=== PATIENT | female | born 1950 | race Caucasian/White ===

== ENCOUNTER 2021-05-05 19:19 | Emergency (ER) | payer OTHER ==
[~2021-05-05] VITALS: Ht 154.9 cm; Wt 63.6 kg
[~2021-05-05 19:19] MED LIST: LIDOcaine 1% W/epiNEPHrine 1:100,000 20ml vial ONE
[2021-05-05 19:24] VITALS: BP 155/85
[2021-05-05] MEDS ORDERED: HYDROcodone/acetaminophen 5mg/325mg tablet PO STA (19:31)
[2021-05-05] MEDS ORDERED: ASPI-1265 PO (20:34)
[2021-05-05] MEDS ORDERED: amox tr/potassium clavulanate 875/125mg TAB PO ONE (21:25)
[2021-05-05] MEDS ORDERED: LIDOcaine/PRILOcaine 5gm cream TP ONE (21:25)
[2021-05-05] MEDS ORDERED: ondansetron 4mg rapidly disintigrating tab PO ONE (21:25)
--- NOTE | 2021-05-05 21:40 | NUR ---
ED provider at bedside to attempt to drain the abscess- topical numbing has been placed. Patient tolerating okay so far.
[2021-05-05] MEDS ORDERED: AMOX-422 PO (22:22)
[2021-05-05] MEDS ORDERED: ONDA4TAB6 PO (22:22)
[2021-05-05] MEDS ORDERED: HYDROcodone/acetaminophen 5mg/325mg tablet PO ONE (22:45)
[2021-05-05] MEDS ORDERED: LIDOcaine 0.5% W/epiNEPHrine 1:200,000 50ml vial IJ ONE (22:45)
[2021-05-05] MEDS ORDERED: LIDOcaine 1% W/epiNEPHrine 1:200,000 10ml vial IJ ONE (22:50)
[2021-05-05] MEDS ORDERED: LIDOcaine 1% W/epiNEPHrine 1:100,000 20ml vial SQ ONE (22:50)
[2021-05-05] MEDS ORDERED: DOXYCYCLINE 100MG CAPSULE PO STA (23:27)
[2021-05-05] MEDS ORDERED: DOXY-1 PO (23:28)
--- NOTE | 2021-05-05 23:30 | NUR ---
ED provider at bedside with I&D equipment at bedside, packing materials, more numbing medications. Several attempts have been made for numbing the eye but patient is not tolerating well. At this time patient and family member are stating they want to leave. ED provider explaining that the infection could spread, more should be drained from the abscess- patient and family insistant that they would prefer to go at this time.
== END 2021-05-05 23:41 | disposition left against medical advice (07) ==
LOC: ER 19:20
DX: H00.035 Abscess of left lower eyelid (principal); H57.11 Ocular pain, right eye; Z88.1 Allergy status to other antibiotic agents; Z79.2 Long term (current) use of antibiotics; Z79.899 Other long term (current) drug therapy
CPT/HCPCS: 64450; 99284

== ENCOUNTER 2023-06-19 13:50 | Inpatient (IN) | payer MEDICARE ==
[~2023-06-19] VITALS: Ht 162.6 cm; Wt 62.7 kg
[~2023-06-19 13:50] MED LIST changes: +ASPI-1265 PO; -LIDOcaine 1% W/epiNEPHrine 1:100,000 20ml vial ONE; +ONDA4TAB6 PO
[2023-06-19 14:28] LABS: BASOPHILS # (AUTO) 0.1 X10'3 (0-0.2); EOSINOPHILS # (AUTO) 0.1 X10'3 (0-0.9); HEMOGLOBIN 10.7 g/dl (12.0-16.0); LYMPHOCYTES # (AUTO) 2.1 X10'3 (1.1-4.8); MONOCYTES # (AUTO) 1.3 X10'3 (0-0.9)
[2023-06-19 14:30] LABS: BASOPHILS % (AUTO) 1.2 % (0-1); EOSINOPHILS % (AUTO) 1.3 % (0-6); HEMATOCRIT 33.7 % (35.0-45.0); LYMPHOCYTES % (AUTO) 30.2 % (21-51); MEAN CORPUSCULAR HEMOGLOBIN 28.4 PG (27.0-31.0); MEAN CORPUSCULAR HGB CONC 31.8 g/dL (33.0-36.5); MEAN PLATELET VOLUME 6.4 FL (7.4-10.4); MONOCYTES % (AUTO) 17.6 % (2-12); NEUTROPHILS # (AUTO) 3.5 X10'3 (1.8-7.7); NEUTROPHILS % (AUTO) 49.7 % (42-75); PLATELET COUNT 721 X10'3 (140-440); RED BLOOD COUNT 3.78 X10'6 (4.20-5.60); RED CELL DISTRIBUTION WIDTH 18.1 % (11.5-14.5); WHITE BLOOD COUNT 7.1 X10'3 (4.5-11.0)
[2023-06-19 14:46] LABS: ALANINE AMINOTRANSFERASE 24 U/L (12-78); ALBUMIN 3.1 G/DL (3.4-5.0); ALBUMIN/GLOBULIN RATIO 0.6 (1.1-1.5); ALKALINE PHOSPHATASE 97 IU/L (46-116); ANION GAP 13 (8-16); ASPARTATE AMINO TRANSFERASE 14 U/L (10-37); BILIRUBIN,TOTAL 0.1 MG/DL (0.1-1.0); BLOOD UREA NITROGEN 78 MG/DL (7-18); BUN/CREATININE RATIO 19.6 (10.0-20.0); CHLORIDE 103 MMOL/L (99-107); CREATININE 3.98 MG/DL (0.40-0.90); GLUCOSE 125 MG/DL (70-104); LIPASE 1477 U/L (73-393); POTASSIUM 4.9 MMOL/L (3.5-5.1); SODIUM 132 MMOL/L (135-145); TOTAL CARBON DIOXIDE 16.4 MMOL/L (24-32); TOTAL PROTEIN 8.5 G/DL (6.4-8.2); eCRCL 10 ML/MIN; eGFR 11 ML/MIN
[2023-06-19 15:03] LABS: CALCIUM 8.9 MG/DL (8.5-10.1)
[2023-06-19 15:55] LABS: ANISOCYTOSIS 2+; PLATELET ESTIMATE INCREASED; TOTAL CELLS COUNTED 100
[2023-06-19] MEDS ORDERED: ringers solution, lacted 1,000 ML IV ONE ×2 (16:10→16:15)
[2023-06-19 16:37] LABS: CLARITY,URINE TURBID (Clear); COLOR,URINE YELLOW (Yellow); UA COLLECTION TYPE CLN CATCH MIDSTREAM
[2023-06-19 16:38] LABS: BILIRUBIN,URINE NEGATIVE (Neg); GLUCOSE, URINE NEGATIVE (Neg); KETONES,URINE NEGATIVE (Neg); LEUKOCYTE ESTERASE ,URINE LARGE (Neg); NITRITES, URINE NEGATIVE (Neg); OCCULT BLOOD,URINE LARGE (Neg); PROTEIN,URINE >=1000 mg/dl (Neg); UROBILINOGEN,URINE 0.2 E.U/dL (0.2-1.0)
[2023-06-19 16:39] LABS: BACTERIA,URINE 3+ /HPF (Neg); RBC,URINE 20-50 /HPF (0-2); SQUAMOUS EPITHELIAL CELL,UR FEW /LPF (FEW); WBC,URINE TNTC /HPF (0-4)
[2023-06-19 16:40] LABS: MUCUS STRANDS MODERATE /LPF (Neg); WBC CLUMPS,URINE MANY /HPF (NEGATIVE)
[2023-06-19] MEDS ORDERED: CefTRIAXone 2gm/D5W 50ml BAG 50 ML IV ONE (17:10)
--- NOTE | 2023-06-19 17:24 | NUR ---
LR INFUSION STOPPED WHILE [facility] IS RUNNING. MEDS ARE NOT COMPATABLE.
--- NOTE | 2023-06-19 17:32 | NUR ---
RESIDENT AT BEDSIDE FOR ADMISSION
[2023-06-19] MEDS ORDERED: magnesium 2GM in 50ml NS 50 ML IV PRN (17:50)
[2023-06-19] MEDS ORDERED: LidoCAINE 2% Topical Jelly 11mL syringe TOP ONE (17:50)
[2023-06-19] MEDS ORDERED: magnesium hydroxide 30ml (MOM) UD suspension PO PRN (17:50)
[2023-06-19] MEDS ORDERED: potassium Cl 40MEQ/1/2NS 520ml 520 ML IV PRN (17:50)
[2023-06-19] MEDS ORDERED: magnesium Cl slow-release 64mg tablet PO PRN (17:50)
[2023-06-19] MEDS ORDERED: ondansetron/PF 4mg/2ml inj IV PRN (17:50)
[2023-06-19] MEDS ORDERED: mag hydrox/Alum hydrox/simeth 30ml oral suspension PO PRN (17:50)
[2023-06-19] MEDS ORDERED: magnesium 4gm in 100ml NS 100 ML IV PRN (17:50)
[2023-06-19] MEDS ORDERED: potassium Cl 20 mEq SR tablet PO PRN ×2 (17:50)
[2023-06-19] MEDS: normal saline 1000ml 1,000 ML IV SCH (17:50)
--- NOTE | 2023-06-19 18:40 | NUR ---
NS late LR still running. Pt refused FC.
[2023-06-19 19:13] LABS: CHOL/HDL RATIO 3.5 (0.00-4.99); CHOLESTEROL 151 MG/DL (0-200); HDL CHOLESTEROL 43 MG/DL (35-60); LDL CHOLESTEROL 82 MG/DL (50-100); MAGNESIUM 2.1 MG/DL (1.5-2.4); POTASSIUM 5.1 MMOL/L (3.5-5.1); THYROID STIMULATING HORMONE 2.04 ulU/ml (0.34-4.50); TRIGLYCERIDES 138 MG/DL (20-135)
[2023-06-19 19:44] LABS: OSMOLALITY 312 MOSM/K (280-300)
[2023-06-19] MEDS: heparin, porcine 5000 units/ml vial SQ SCH (20:00)
[2023-06-19] MEDS: docusate sod 100mg capsule PO SCH (20:00)
[2023-06-19] MEDS: K and/or MAG REPLACEMENT MC SCH (20:06)
[2023-06-19 21:35] VITALS: BP 166/70; PULSE 79; RESP 16; TEMP 97.6; O2SAT 100
--- NOTE | 2023-06-19 21:35 | NUR ---
PATIENT ADMITTED TO ROOM 4014A FROM ER FOR ACUTE CYSTITIS, PLACED COMFORTABLE IN BED. VITAL SIGNS TAKEN AND RECORDED.
--- NOTE | 2023-06-19 22:05 | NUR ---
PATIENT REFUSED TO HAVE TELE ON. CALLED DR. 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
--- NOTE | 2023-06-19 22:30 | NUR ---
PATIENT REFUSED NASAL SWAB AT THIS TIME.
[2023-06-20] MEDS: normal saline 1000ml 1,000 ML IV SCH ×3 (00:01→18:49)
--- NOTE | 2023-06-20 00:10 | NUR ---
PATIENT AGREED TO HAVE TELE MONITOR ON. PATIENT STILL STRONGLY REFUSED TO HAVE NASAL SWAB FOR MRSA.
[2023-06-20 03:56] VITALS: RESP 18; O2SAT 97
[2023-06-20 06:31] LABS: BASOPHILS # (AUTO) 0.1 X10'3 (0-0.2); EOSINOPHILS # (AUTO) 0.1 X10'3 (0-0.9); EOSINOPHILS % (AUTO) 1.4 % (0-6); WHITE BLOOD COUNT 7.6 X10'3 (4.5-11.0)
[2023-06-20 06:34] LABS: APTT 27 SECONDS (22-32); INR 0.9 INR; PROTHROMBIN TIME 10.2 SECONDS (9.0-12.0)
--- NOTE | 2023-06-20 06:34 | NUR ---
Problems reprioritized. Patient report given, questions answered & plan of care reviewed with AWAIS ACEVEDO.
[2023-06-20 06:35] LABS: BASOPHILS % (AUTO) 1.2 % (0-1); HEMATOCRIT 28.9 % (35.0-45.0); HEMOGLOBIN 9.6 g/dl (12.0-16.0); LYMPHOCYTES # (AUTO) 2.2 X10'3 (1.1-4.8); MEAN CORPUSCULAR HEMOGLOBIN 29.4 PG (27.0-31.0); MEAN CORPUSCULAR HGB CONC 33.3 g/dL (33.0-36.5); MEAN CORPUSCULAR VOLUME 88.2 FL (78-98); MEAN PLATELET VOLUME 6.5 FL (7.4-10.4); MONOCYTES # (AUTO) 1.2 X10'3 (0-0.9); MONOCYTES % (AUTO) 15.6 % (2-12); NEUTROPHILS % (AUTO) 52.8 % (42-75); PLATELET COUNT 610 X10'3 (140-440); RED BLOOD COUNT 3.28 X10'6 (4.20-5.60); RED CELL DISTRIBUTION WIDTH 17.6 % (11.5-14.5)
[2023-06-20 06:43] LABS: ALANINE AMINOTRANSFERASE 18 U/L (12-78); ALBUMIN 2.8 G/DL (3.4-5.0); ALBUMIN/GLOBULIN RATIO 0.6 (1.1-1.5); ALKALINE PHOSPHATASE 90 IU/L (46-116); ANION GAP 10 (8-16); ASPARTATE AMINO TRANSFERASE 10 U/L (10-37); BILIRUBIN,TOTAL 0.1 MG/DL (0.1-1.0); BLOOD UREA NITROGEN 72 MG/DL (7-18); BUN/CREATININE RATIO 20.3 (10.0-20.0); CALCIUM 8.9 MG/DL (8.5-10.1); CHLORIDE 107 MMOL/L (99-107); CREATININE 3.54 MG/DL (0.40-0.90); GLUCOSE 94 MG/DL (70-104); LIPASE 1360 U/L (73-393); PHOSPHORUS 4.9 MG/DL (2.3-4.5); POTASSIUM 4.8 MMOL/L (3.5-5.1); SODIUM 135 MMOL/L (135-145); TOTAL CARBON DIOXIDE 17.6 MMOL/L (24-32); TOTAL PROTEIN 7.5 G/DL (6.4-8.2); eCRCL 13 ML/MIN; eGFR 13 ML/MIN
[2023-06-20 07:00] VITALS: BP 160/58; PULSE 84; RESP 15; TEMP 97.7; O2SAT 100
[2023-06-20] MEDS: docusate sod 100mg capsule PO SCH ×2 (08:00→19:09)
[2023-06-20] MEDS: heparin, porcine 5000 units/ml vial SQ SCH ×2 (08:00→19:09)
[2023-06-20] MEDS: K and/or MAG REPLACEMENT MC SCH ×2 (08:00→20:00)
[2023-06-20] MEDS: aspirin 81mg tab.chew PO SCH (08:46)
[2023-06-20] MEDS: CefTRIAXone/D5W-Rocephin 1gm 50 ML IV SCH (08:46)
--- NOTE | 2023-06-20 10:16 | NUR ---
Patient refusing to have noonan catheter inserted. Resident Jameson aware and in to see patient. Patient continues to refuse.
--- NOTE | 2023-06-20 10:25 | NUR ---
patient seen ambulating to and from bathroom barefoot. educated to wear non skid socks or shoes for safety and fall prevention. patient continues to refuse. Addendum: 06/20/23 at 1026 by Tali Golden RN Amended: Links added.
[2023-06-20 12:26] LABS: SODIUM,URINE RANDOM 65 MEQ/L
[2023-06-20 12:29] LABS: OSMOLALITY UA 282 MOSM/K (50-1400)
[2023-06-20 12:33] LABS: URINE AMPHETAMINE SCREEN NEGATIVE (Neg); URINE BARBITUATE SCREEN NEGATIVE (Neg); URINE BENZODIAZEPINES SCREEN NEGATIVE (Neg); URINE CANNABINOID SCREEN NEGATIVE (Neg); URINE COCAINE SCREEN NEGATIVE (Neg); URINE METHADONE SCREEN NEGATIVE (Neg); URINE OPIATE SCREEN NEGATIVE (Neg); URINE PHENCYCLIDINE SCREEN NEGATIVE (Neg)
[2023-06-20 12:38] VITALS: BP 139/67; PULSE 63; RESP 18; TEMP 97.8; O2SAT 99
[2023-06-20 18:00] VITALS: BP 151/69; PULSE 69; RESP 18; TEMP 97.6; O2SAT 99
[2023-06-20 19:30] VITALS: RESP 18; O2SAT 99
[2023-06-20] MEDS: acetaminophen 325mg tablet PO PRN (20:30)
[2023-06-20 22:33] VITALS: BP 113/56; PULSE 76; RESP 16; TEMP 97.1; O2SAT 99
[2023-06-21] MEDS: normal saline 1000ml 1,000 ML IV SCH ×2 (04:01→19:50)
[2023-06-21 06:00] VITALS: BP 144/78; PULSE 68; RESP 15; TEMP 96.7; O2SAT 100
--- NOTE | 2023-06-21 06:19 | NUR ---
Problems reprioritized. Patient report given, questions answered & plan of care reviewed with KRISTINA Farfan.
[2023-06-21 07:05] LABS: BASOPHILS % (AUTO) 0.3 % (0-1); EOSINOPHILS # (AUTO) 0.1 X10'3 (0-0.9); HEMATOCRIT 28.2 % (35.0-45.0); HEMOGLOBIN 9.1 g/dl (12.0-16.0); LYMPHOCYTES # (AUTO) 2.5 X10'3 (1.1-4.8); LYMPHOCYTES % (AUTO) 37.3 % (21-51); MEAN CORPUSCULAR HEMOGLOBIN 28.8 PG (27.0-31.0); MEAN CORPUSCULAR HGB CONC 32.4 g/dL (33.0-36.5); MEAN CORPUSCULAR VOLUME 88.9 FL (78-98); MEAN PLATELET VOLUME 6.7 FL (7.4-10.4); MONOCYTES # (AUTO) 0.7 X10'3 (0-0.9); MONOCYTES % (AUTO) 10.3 % (2-12); NEUTROPHILS # (AUTO) 3.4 X10'3 (1.8-7.7); NEUTROPHILS % (AUTO) 50.1 % (42-75); PLATELET COUNT 552 X10'3 (140-440); RED BLOOD COUNT 3.18 X10'6 (4.20-5.60); RED CELL DISTRIBUTION WIDTH 17.3 % (11.5-14.5); WHITE BLOOD COUNT 6.7 X10'3 (4.5-11.0)
[2023-06-21 07:16] LABS: APTT 28 SECONDS (22-32); PROTHROMBIN TIME 10.3 SECONDS (9.0-12.0)
[2023-06-21 07:28] LABS: ALANINE AMINOTRANSFERASE 19 U/L (12-78); ALBUMIN 2.6 G/DL (3.4-5.0); ALBUMIN/GLOBULIN RATIO 0.6 (1.1-1.5); ALKALINE PHOSPHATASE 77 IU/L (46-116); ANION GAP 11 (8-16); ASPARTATE AMINO TRANSFERASE 15 U/L (10-37); BILIRUBIN,TOTAL 0.1 MG/DL (0.1-1.0); BLOOD UREA NITROGEN 54 MG/DL (7-18); BUN/CREATININE RATIO 18.4 (10.0-20.0); CALCIUM 8.4 MG/DL (8.5-10.1); CHLORIDE 110 MMOL/L (99-107); CREATININE 2.94 MG/DL (0.40-0.90); GLUCOSE 84 MG/DL (70-104); LIPASE 1123 U/L (73-393); MAGNESIUM 1.8 MG/DL (1.5-2.4); PHOSPHORUS 4.6 MG/DL (2.3-4.5); POTASSIUM 4.3 MMOL/L (3.5-5.1); SODIUM 136 MMOL/L (135-145); TOTAL CARBON DIOXIDE 15.2 MMOL/L (24-32); TOTAL PROTEIN 6.9 G/DL (6.4-8.2); eCRCL 15 ML/MIN; eGFR 16 ML/MIN
[2023-06-21] MEDS: docusate sod 100mg capsule PO SCH ×2 (08:00→18:56)
[2023-06-21] MEDS: K and/or MAG REPLACEMENT MC SCH ×2 (08:00→18:57)
[2023-06-21] MEDS: heparin, porcine 5000 units/ml vial SQ SCH ×2 (08:00→18:56)
[2023-06-21] MEDS: aspirin 81mg tab.chew PO SCH (08:23)
[2023-06-21] MEDS: CefTRIAXone/D5W-Rocephin 1gm 50 ML IV SCH (08:24)
[2023-06-21 10:00] VITALS: BP 141/76; PULSE 82; RESP 15; TEMP 97.6; O2SAT 100
--- NOTE | 2023-06-21 12:25 | NUR ---
patient refusing full assessment from RN and student nurse, educated patient on importance. verbally stated she feels really good, no difficulty breathing or chest pain. irritated about having multiple BMs and would like them to stop. patient stated she wants medication to help stop loose stools and to eat real food.
[2023-06-21 18:00] VITALS: BP 141/76; PULSE 83; RESP 18; TEMP 97.3; O2SAT 92
--- NOTE | 2023-06-21 18:09 | NUR ---
Problems reprioritized. Patient report given, questions answered & plan of care reviewed with katie ACEVEDO.
[2023-06-21 20:00] VITALS: RESP 18; O2SAT 92
[2023-06-21] MEDS: acetaminophen 325mg tablet PO PRN (21:41)
[2023-06-21 22:00] VITALS: BP 134/72; PULSE 65; RESP 15; TEMP 98.1; O2SAT 99
[2023-06-22] MEDS: normal saline 1000ml 1,000 ML IV SCH ×3 (03:00→07:41)
[2023-06-22 06:00] VITALS: BP 141/52; PULSE 59; RESP 14; TEMP 97.9; O2SAT 100
[2023-06-22 06:12] LABS: BASOPHILS # (AUTO) 0.1 X10'3 (0-0.2); BASOPHILS % (AUTO) 1.2 % (0-1); EOSINOPHILS # (AUTO) 0.1 X10'3 (0-0.9); EOSINOPHILS % (AUTO) 1.5 % (0-6); HEMATOCRIT 28.4 % (35.0-45.0); LYMPHOCYTES # (AUTO) 2.8 X10'3 (1.1-4.8); LYMPHOCYTES % (AUTO) 31.8 % (21-51); MEAN CORPUSCULAR HEMOGLOBIN 28.3 PG (27.0-31.0); MEAN CORPUSCULAR HGB CONC 31.7 g/dL (33.0-36.5); MEAN CORPUSCULAR VOLUME 89.3 FL (78-98); MEAN PLATELET VOLUME 6.7 FL (7.4-10.4); MONOCYTES % (AUTO) 11.6 % (2-12); NEUTROPHILS # (AUTO) 4.8 X10'3 (1.8-7.7); NEUTROPHILS % (AUTO) 53.9 % (42-75); PLATELET COUNT 551 X10'3 (140-440); RED BLOOD COUNT 3.18 X10'6 (4.20-5.60); RED CELL DISTRIBUTION WIDTH 17.6 % (11.5-14.5); WHITE BLOOD COUNT 8.9 X10'3 (4.5-11.0)
[2023-06-22 06:21] LABS: APTT 27 SECONDS (22-32); PROTHROMBIN TIME 10.6 SECONDS (9.0-12.0)
[2023-06-22 06:30] LABS: ALANINE AMINOTRANSFERASE 17 U/L (12-78); ALBUMIN 2.5 G/DL (3.4-5.0); ALBUMIN/GLOBULIN RATIO 0.6 (1.1-1.5); ALKALINE PHOSPHATASE 72 IU/L (46-116); ANION GAP 12 (8-16); ASPARTATE AMINO TRANSFERASE 17 U/L (10-37); BILIRUBIN,TOTAL 0.1 MG/DL (0.1-1.0); BLOOD UREA NITROGEN 48 MG/DL (7-18); BUN/CREATININE RATIO 16.7 (10.0-20.0); CALCIUM 8.5 MG/DL (8.5-10.1); CHLORIDE 111 MMOL/L (99-107); CREATININE 2.87 MG/DL (0.40-0.90); GLUCOSE 90 MG/DL (70-104); LIPASE 1172 U/L (73-393); MAGNESIUM 1.6 MG/DL (1.5-2.4); PHOSPHORUS 4.6 MG/DL (2.3-4.5); POTASSIUM 4.4 MMOL/L (3.5-5.1); SODIUM 139 MMOL/L (135-145); TOTAL CARBON DIOXIDE 16.3 MMOL/L (24-32); TOTAL PROTEIN 6.5 G/DL (6.4-8.2); eCRCL 16 ML/MIN; eGFR 16 ML/MIN
[2023-06-22] MEDS: aspirin 81mg tab.chew PO SCH (07:39)
[2023-06-22] MEDS: docusate sod 100mg capsule PO SCH (07:39)
[2023-06-22] MEDS: heparin, porcine 5000 units/ml vial SQ SCH (07:40)
[2023-06-22] MEDS: K and/or MAG REPLACEMENT MC SCH (07:40)
[2023-06-22] MEDS ORDERED: lactobacillus rhamnosus 10,000 MMU CELLS/CAPSULE PO SCH (08:00)
[2023-06-22] MEDS ORDERED: amox tr/potassium clavulanate 500mg/125mg TAB PO SCH (08:30)
[2023-06-22 10:00] VITALS: BP 140/54; PULSE 80; RESP 16; TEMP 98.4; O2SAT 100
[2023-06-22 12:08] LABS: C DIFF ANTIGEN NEGATIVE (NEGATIVE); C DIFF SPECIMEN=DIARRHEA? ACCEPTABLE; C DIFFICILE TOXINS A&B NEGATIVE (Neg)
== END 2023-06-22 16:30 | DRG 689 ==
LOC: ER 13:51 → ED HOLD 18:03 → EDBEDREQ 21:11 → ORTHO 4S 21:43
PROVIDERS: ADMIT Family Medicine; ATTEND Family Medicine
DX: N30.01 Acute cystitis with hematuria (principal); N17.0 Acute kidney failure with tubular necrosis; E87.1 Hypo-osmolality and hyponatremia; E86.0 Dehydration; D75.839 Thrombocytosis, unspecified; D64.9 Anemia, unspecified; N13.9 Obstructive and reflux uropathy, unspecified; N18.9 Chronic kidney disease, unspecified; N81.89 Other female genital prolapse; N81.10 Cystocele, unspecified; Z88.8 Allergy status to other drugs, medicaments and biological substances; Z88.5 Allergy status to narcotic agent; Z79.82 Long term (current) use of aspirin; Z79.899 Other long term (current) drug therapy
CPT/HCPCS: 36415; 74176; 80053; 80061; 80305; 81001; 83036; 83605; 83690; 83735; 83930; 83935; 84100; 84132; 84145; 84300; 84443; 85007; 85025; 85610; 85730; 87040; 87077; 87088; 87186; 87324; 87449; 93975; 99285; A4314; A6258; G0378; J0696; J7030; J7120

== ENCOUNTER 2025-07-27 15:34 | Emergency (ER) | payer MEDICARE ==
[~2025-07-27] VITALS: Ht 154.9 cm; Wt 61.5 kg
[~2025-07-27 15:34] MED LIST changes: -ONDA4TAB6 PO
[2025-07-27 15:38] VITALS: BP 134/88; PULSE 95; RESP 18; O2SAT 98
--- NOTE | 2025-07-27 16:05 | RADIOLOGY REPORT ---
CLINICAL INDICATION: HAND PAIN,left TECHNIQUE: DI HAND, COMPLETE (3VW MIN) Comparison: None FINDINGS/IMPRESSION: : There is an acute mildly displaced fracture of the 5th metacarpal shaft. Joints are intact. Soft tissues are unremarkable.
--- NOTE | 2025-07-27 16:25 | Physician Documentation ---
History of Present Illness ~ Chief Complaint: Hand pain Stated Complaint: HAND PAIN Time Seen by MD: 15:43 Primary Medical Doctor: none HPI Patient is seen today with complaints of pain of her left hand after a van door came down on it about a week ago. Patient states that her left hand still hurts and she feels it might be broken. Patient has no other concern or complaint at this time. Tetanus within 5 years: Yes Medication Reconciliation Allergies: Coded Allergies: Metronidazole HCl (Verified Allergy, Unknown, 07/27/25) codeine (Verified Allergy, Unknown, 07/27/25) metronidazole (Verified Allergy, Unknown, 07/27/25) Scheduled Aspirin (Aspirin), 1 TAB.CHEW PO DAILY, (Reported) Past Medical History Alcohol Use: None Drug Use: none Lives with: Family Lives In: Home Occupation: retired Review of Systems Constitutional: Denies: chills, fever, weakness Eyes: Denies: pain, blurred vision ENT: Denies: ear pain, nose pain, throat pain, mouth pain Respiratory: Denies: cough, shortness of breath Cardiovascular: Denies: chest pain, palpitations Gastrointestinal: Denies: abdominal pain, nausea, vomiting Genitourinary: Denies: burning, dysuria Female Genitalia: Denies: vaginal discharge, pelvic pain Neurological: Denies: headache, dizziness Musculoskeletal: Denies: pain, swelling Integumentary: Denies: rash, lesions Allergic/Immunologic: Denies: hives, itching Hematologic/Lymphatic: Denies: no symptoms reported Psychiatric: Denies: depression, anxiety Physical Exam Vital Signs: Temperature: 97.2, Source: Temporal, Heart Rate: 95, Respiratory Rate: 18, BP: 134/88, Pulse Oximetry: 98, Weight: 61.500 Oxygen Flow Rate: 0 Physical Exam General: Awake and Alert, no acute distress. HEENT: Conjunctiva pink, Sclera clear, Mucus Membranes moist. Neck: Supple without masses and tenderness. Resp: Unlabored. Lungs clear to auscultation bilaterally. Musculoskeletal: Patient on exam does have mild swelling and tenderness to palpation of the left 5th metacarpal. Patient is neurovascularly intact distally. Motor function intact distally. Skin: Warm and Dry. Progress Results/Orders Results/Orders Vital Signs 07/27/25 07/27/25 15:38 17:09 Temp 97.2 97.2 Pulse 95 Resp 18 B/P (MAP) 134/88 Pulse Ox 98 O2 Flow Rate 0 EKG/XRAY/CT/US/VASC/MRI Bone/Soft Tissue X-Ray (Ext.) : Additional Comment X-ray of the left hand interpreted by myself today shows mildly displaced acute fracture of the left 5th metacarpal shaft. Other Bones of the left hand are otherwise in anatomic alignment. DIAGNOSTIC RADIOLOGY Patient: SHIRA LEVY Medical Record: [id number] [facility] : 1950, Age: 74 Sex: Female Location: ER Patient Status: [facility] ER Service Date/Time: 07/27/251550 Ordering Physician: JAQUAN ROBB MD Exam: HAND, COMPLETE (3VW MIN) CLINICAL INDICATION: HAND PAIN,left TECHNIQUE: DI HAND, COMPLETE (3VW MIN) Comparison: None FINDINGS/IMPRESSION: : There is an acute mildly displaced fracture of the 5th metacarpal shaft. Joints are intact. Soft tissues are unremarkable. Electronically Signed by:GIORGIO RODAS MD Date & Time: 07/27/251601 Dictated by: GIORGIO RODAS MD Dictation date and time: 07/27/25 160 Primary Care Provider: NO PRIMARY CARE PROVIDER cc: JAQUAN ROBB MD ~ Medical Decision Making Additional information obtaine: N/A Findings Patient is seen today with complaints of pain of her left hand after a van door came down on it about a week ago. Patient states that her left hand still hurts and she feels it might be broken. Patient has no other concern or complaint at this time. Patient did have x-ray taken of the left hand which did show mildly displaced fracture of the left 5th metacarpal shaft. Patient unfortunately left prior to explanation or discussion about the x-ray and left prior to any splinting being performed. Patient will return to ED with any worsening, concerning or changing symptoms. General Diff Dx:Considerations: Unlikely: Abrasion, Contusion, Fracture, Hematoma, Laceration, Malunion, Neurovascular injury, Open fracture, Sprain, Ulcer, Other Shoulder Diff Dx:Consideration: Unlikely: AC separation, Adhesive capsulitis, Arthritis, Bicipital tendonitis, Calcific tendonitis, Cervical disc disease, Contusion, Dislocation, Fracture-humerus, Fracture-scapula, Fracture-clavicle, GB disease, Hematoma, Impingement syndrome, Myocardial infarction, Neurovascular injury, Open fracture-humerus, Open fracture-scapula, Open fracture-clavicle, Rotator cuff injury, SC dislocatoin, Sprain, Subacromial bursitis, Other Elbow Diff Dx:Considerations: Unlikely: Abrasion, Arthritis, Contustion, DJD, Fracture-humerus, Fracture-radial head, Fracture-radius, Fracture-ulna, Gout, Hematoma, Laceration, Neurovascular injury, Olecranon bursitis, Open fracture, Osteomyelitis, Radial head subluxation, Rheumatoid arthritis, Septic, Sprain, Ulcer, Other Wrist Diff Dx:Considerations: Unlikely: Abrasion, Arthritis, DJD, Gout, Rheumatoid, Septic, Carpal tunnel snydrome, Contusion, Dislocation, Fracture- carpal, Fracture-radius, Fracture-ulna, Ganglion, Laceration, Neurovascular injury, Open fracture, Strain, Other Hand Diff Dx:Considerations: Include: Arthritis, Contusion, DJD, Fracture- carpal, Fracture-metacarpal, Fracture-phalynx, Fracture-ulna, Sprain Finger Diff Dx:Considerations: Unlikely: Abrasion, Cellulitis, Contusion, Disl ocation, Fracture, Hematoma, Laceration, Neurovascular injury, Open fracture, Subungual hematoma, Other Departure Disposition: 07 LEFT AWOL/ELOPED Impression: Primary Impression: Fracture of hand Qualified Codes: S62.92XA - Unspecified fracture of left hand, initial encounter for closed fracture Condition: Stable Discharge Instructions: Fracture, Hand Additional Instructions: Patient did have x-ray taken of the left hand which did show mildly displaced fracture of the left 5th metacarpal shaft. Patient unfortunately left prior to explanation or discussion about the x-ray and left prior to any splinting being performed. Patient will return to ED with any worsening, concerning or changing symptoms. Referrals: NO PRIMARY CARE PROVIDER (PCP) Signature Scribe Signature: No scribe Attestation: No nasrinibNICK Whatley [facility] Jul 27, 2025 16:24
[2025-07-27 17:09] VITALS: TEMP 97.2
== END 2025-07-27 17:13 | disposition left against medical advice (07) ==
LOC: ER 15:35
DX: S62.327A Displaced fracture of shaft of fifth metacarpal bone, left hand, initial encounter for closed fracture (principal); Z88.5 Allergy status to narcotic agent; Z88.1 Allergy status to other antibiotic agents; Z79.82 Long term (current) use of aspirin; X58.XXXA Exposure to other specified factors, initial encounter; Y93.89 Activity, other specified; Y92.89 Other specified places as the place of occurrence of the external cause; Y99.8 Other external cause status
CPT/HCPCS: 73130; 99283